=== PATIENT | male | born 1995 | race Caucasian/White ===

== ENCOUNTER 2019-03-29 12:36 | Outpatient (CLI) | payer OTHER ==
--- NOTE | 2019-03-30 08:51 | MRI Report ---
Reason: INJURY OF LT LOWER LEG Procedure Date: 03/29/2019 Accession Number: [id number] / [id number] Procedure: MRI - Knee LT W/O CPT Code: Final Report FULL RESULT: EXAM: LEFT KNEE MRI WITHOUT CONTRAST EXAM DATE: 03/29/2019 02:00 PM. CLINICAL HISTORY: Left lower leg injury while playing flag football. COMPARISON: None. TECHNIQUE: Multiplanar, multisequence T1-weighted and fluid-sensitive sequences of the knee without contrast. Other: None. FINDINGS: Bones: No fractures. Edema in the inferior half of the patella could represent bony contusion and/or reactive marrow edema. Articular Cartilage: A focal area of full-thickness cartilage loss is demonstrated at the inferior central patella. The region measures 6 x 4 mm and there may be adjacent cartilage undermining (series 601, image 27). The trochlear cartilage is intact. The tibiofemoral articular cartilage is intact. Medial Meniscus: The medial meniscus is intact. Lateral Meniscus: The lateral meniscus is intact. Cruciate Ligaments: The anterior and posterior cruciate ligaments are intact. Collateral Ligaments: The medial collateral and lateral collateral ligamentous structures are intact. Tendons: The quadriceps, patellar, semimembranosus, and popliteus tendons are unremarkable. Musculature: No edema or fatty atrophy. Other: A moderate knee effusion is present. No popliteal cyst. No loose bodies. The medial and lateral retinacula are intact. Prepatellar subcutaneous edema is seen. Edema is in the superior lateral portion of Hoffa's fat pad. IMPRESSION: 1. Focal cartilage defect of the central inferior patella. There is adjacent bony and fatty edema. 2. Moderate knee effusion. [facility]
== END 2019-03-29 12:37 | disposition home or self-care (01) ==
LOC: DI 12:36
PROVIDERS: ATTEND Student in an Organized Health Care Education/Training Program
DX: S89.82XA Other specified injuries of left lower leg, initial encounter (principal); M25.462 Effusion, left knee